=== PATIENT | female | born 1955 | race Caucasian/White ===

== ENCOUNTER 2020-01-28 14:05 | Outpatient (REF) | payer MEDICAID, SELFPAY | END 2020-01-28 14:06 | disposition home or self-care (01) | LOC: HO.LNP 14:05 | PROVIDERS: Visit Provider Internal Medicine | DX: Z20.828 Contact with and (suspected) exposure to other viral communicable diseases (principal) | CPT/HCPCS: U0003 ==

== ENCOUNTER 2020-09-15 11:16 | Outpatient (REF) | payer MEDICARE, MEDICAID, SELFPAY ==
[2020-09-15 13:26] LABS: MANUAL DIFF FLAG NO
[2020-09-15 13:33] LABS: Basophils Absolute Auto 0.1 X10*3/uL (0.0-0.2); Basophils Percent Auto 0.8 % (0-2); Eosinophils Absolute Auto 0.1 X10*3/uL (0.0-0.4); Eosinophils Percent Auto 1.4 % (0-4); Hematocrit 44.5 % (37-47); Hemoglobin 14.5 g/dl (12.0-16.0); Imm Gran Abs Auto 0.01 X10*3/uL (0.00-0.03); Imm Gran Pct Auto 0.1 % (0.0-0.4); Lymphocytes Absolute Auto 1.4 X10*3/uL (1.2-4.9); Lymphocytes Percent Auto 18.7 % (20-40); Mean Corpuscular HGB Conc 32.6 g/dl (31.0-35.0); Mean Corpuscular Volume 92.1 fL (80-98); Monocytes Absolute Auto 0.4 X10*3/uL (0.1-1.2); Monocytes Percent Auto 5.8 % (2-11); Neutrophils Absolute Auto 5.3 X10*3/uL (2.0-8.3); Neutrophils Percent Auto 73.2 % (45-73); Platelet Count 382 X10*3/uL (160-400); Red Blood Count 4.83 X10*6/uL (4.20-5.50); Red Cell Distribution Width 12.6 % (11.0-16.0); White Blood Count 7.2 X10*3/uL (4.8-10.8)
[2020-09-15 13:54] LABS: Alanine Aminotransferase 16 U/L (0-31); Albumin Level 4.4 g/dL (3.5-5.0); Alkaline Phosphatase 71 U/L (39-117); Anion Gap 14 (12-20); Aspartate Amino Transferase 23 U/L (5-31); Bilirubin Total 0.6 mg/dL (0.0-1.0); Blood Urea Nitrogen 11 mg/dL (9-16); Calcium 9.9 mg/dL (8.4-10.2); Carbon Dioxide 29 mmol/L (22-29); Chloride 105 mmol/L (96-108); Cholesterol 178 mg/dL; Estimated Glomerular Filt Rate > 60; Glucose Fasting 108 mg/dL (60-99); HDL Cholesterol 42 mg/dL; LDL Cholesterol Calculated 118 mg/dl; Potassium 4.1 mmol/L (3.3-5.1); Sodium 144 mmol/L (135-145); Total Protein 7.3 g/dL (6.5-8.0); Triglycerides 91 mg/dL
== END 2020-09-15 11:17 | disposition home or self-care (01) ==
LOC: HO.10HDL 11:16
PROVIDERS: Visit Provider Internal Medicine
DX: N18.9 Chronic kidney disease, unspecified (principal); Z86.2 Personal history of diseases of the blood and blood-forming organs and certain disorders involving the immune mechanism
CPT/HCPCS: 36415; 80053; 80061; 85025

== ENCOUNTER 2020-10-07 07:56 | Outpatient (REF) | payer MEDICARE, MEDICAID, SELFPAY ==
--- NOTE | ~2020-10-07 | MR_ITS ---
EXAMINATION: MRI OF THE BRAIN WITH AND WITHOUT IV CONTRAST INDICATION: TRIGEMINAL NEURALGIA COMPARISON: None. TECHNIQUE: Multiplanar multisequence MR imaging of the brain was obtained without and following the administration of 9 mL of Gadavist without complication. FINDINGS: There is a 6 mm enhancing nodule inseparable from the occipital horn of the left lateral ventricle on image 11 of series 11. No additional enhancing lesions intracranially. This is a nonspecific finding that could reflect an intraventricular lesion exhibiting extraventricular extension or an intraventricular lesion exhibiting intraventricular extension. A metastatic focus cannot be excluded. Follow-up with high-resolution MP RAGE postcontrast imaging and a full malignancy workup is recommended for further assessment. Enhancing thickening of the infundibular stalk versus volume averaging artifact that would be better assessed with a dedicated pituitary protocol MRI. There are a few small foci of T2 signal change within the periventricular white matter, the largest associated with the right frontal periventricular white matter. Differential considerations include chronic microangiopathy, the sequela of demyelinating disease, or other white matter processes. Small incidental developmental venous anomaly within the left cerebellum. There is no vascular loop compression of the cisternal segments of the trigeminal nerves. No pathologic enhancement along the intracranial nor the extracranial course of the trigeminal nerves on either side. There is no hydrocephalus, extra-axial surface collection, or herniation. The major flow voids at the skull base are preserved. There is no acute infarct on diffusion-weighted imaging. The cerebellar tonsils are normally positioned. The cerebellum and brainstem are normal. The craniocervical junction is normal. Osseous marrow signal intensity is homogenous. The visualized soft tissues are unremarkable. MR/MR head/brain wo/w con IMPRESSION: - There is a 6 mm enhancing nodule inseparable from the occipital horn of the left lateral ventricle on image 11 of series 11. No additional enhancing lesions intracranially. This is a nonspecific finding that could reflect an intraventricular lesion exhibiting extraventricular extension or an intraventricular lesion exhibiting intraventricular extension. A metastatic focus cannot be excluded. Follow-up with high-resolution MPRAGE postcontrast imaging and a full malignancy workup is recommended for further assessment. - Enhancing thickening of the infundibular stalk versus volume averaging artifact that would be better assessed with a dedicated pituitary protocol MRI. - There are a few small foci of T2 signal change within the periventricular white matter, the largest associated with the right frontal periventricular white matter. Differential considerations include chronic microangiopathy, the sequela of demyelinating disease, or other white matter processes. - No pathologic enhancement of the trigeminal nerves. No evidence of vascular loop compression of the trigeminal nerves.
== END 2020-10-07 07:57 | disposition home or self-care (01) ==
LOC: HO.MRI 07:56
PROVIDERS: PCP Internal Medicine; Visit Provider Internal Medicine
DX: G50.0 Trigeminal neuralgia (principal)
CPT/HCPCS: 70553; A9585

== ENCOUNTER 2020-10-16 10:49 | Outpatient (REF) | payer MEDICARE, MEDICAID, SELFPAY ==
--- NOTE | ~2020-10-16 | MM_ITS ---
EXAMINATION: BONE DENSITOMETRY CLINICAL INDICATION: Menopause. COMPARISON: Baseline BD dated 05/28/2014. TECHNIQUE: Using a Clctin DXA System (software version: 13.1) manufactured by [employer], dual-energy x-ray absorptiometry was performed of the lumbar spine and left hip. The images are of good technical quality. Summary results are attached. FINDINGS: AP SPINE L1-L4: Current: BMD 1.154 g/cm2, Z-score 0.7, T-score -0.2, normal, 1.3% increase from baseline (<5% change is not significant). Baseline: BMD 1.139 g/cm2. LEFT FEMUR, NECK: Current: BMD 0.476 g/cm2, Z-score -3.0, T-score -4.0, osteoporosis. Baseline: BMD 0.912 g/cm2. LEFT FEMUR, TOTAL: Current: BMD 0.475 g/cm2, Z-score -3.5, T-score -4.2, osteoporosis, 46.1% decrease from baseline (<5% change is not significant). Baseline: BMD 0.881 g/cm2. IDENTIFIED RISK FACTORS: Menopause. HISTORY OF FRACTURE: None listed. MEDICATIONS: Calcium supplements or multivitamin, vitamin D. MM/XR DEXA axial skeleton IMPRESSION: 1. DIAGNOSIS: Osteoporosis based on the lowest T-score value of -4.2 in the total femur applying World Health Organization criteria. 2. 10-YEAR FRACTURE RISK PREDICTION, FRAX: Major osteoporotic fracture (clinical spine, forearm, hip or shoulder) 27.5%. Hip fracture 13.7%. 3. Treatment Recommendations: NOF guidelines recommend consideration for treatment in postmenopausal women and men age 50 and older presenting with the following: -A hip or vertebral (clinical or morphometric) fracture. -T-score less than or equal to -2.5 at the femoral neck or spine after appropriate evaluation to exclude secondary causes. -Low bone mass at the hip or spine and a 10-year fracture probability by FRAX of greater than or equal to 3% for hip fracture or greater than or equal to 20% for major osteoporotic fracture based on the [place] adapted WHO algorithm. 4. Other Recommendations: All treatment decisions require clinical judgment and consideration of individual patient factors, including patient preferences, comorbidities, previous drug use, risk factors not captured in the FRAX model (e.g. frailty, falls, vitamin D deficiency, increased bone turnover, interval significant decline in bone density) and possible under or overestimation of fracture risk by FRAX. Additional medical evaluation for secondary cause of low bone mineral density may be appropriate. FUTURE SCAN RECOMMENDATION: People with diagnosed cases of osteoporosis or at high risk for fracture should have regular bone mineral density tests. For patients eligible for Medicare, routine testing is allowed once every 2 years. The testing frequency can be increased to one year for patients who have rapidly progressing disease, those who are receiving or discontinuing medical therapy to restore bone mass, or have additional risk factors.
--- NOTE | ~2020-10-16 | MM_ITS ---
EXAMINATION: MM SCREENING DIGITAL BREAST TOMOSYNTHESIS, BILATERAL CLINICAL INFORMATION: Screening. Asymptomatic. The lifetime risk of breast cancer based on the Tyrer-Cuzick Model is 5.4%. COMPARISON: Mammography: 01/23/2018 and studies dating back to 12/11/2010 TECHNIQUE: Digital breast tomosynthesis is performed in both the craniocaudal and mediolateral oblique views along with computer-aided detection (CAD). Synthesized 2D images are generated from the tomosynthesis. FINDINGS: The breasts are heterogeneously dense, which may obscure small masses (ACR BI-RADS breast composition Category c). There is a stable parenchymal pattern of the left breast. Within the right breast, there are a few either larger or new appearing densities, one measuring approximately 8 mm in maximum dimension lying 10.0 cm from nipple in the upper outer aspect and a second one within the upper outer aspect measuring 9 mm in largest dimension and lying approximately 6.0 cm from the nipple. Ultrasound of the upper outer aspect of the right breast is recommended. MM/MM tomosynthesis screening BI IMPRESSION: New or enlarging circumscribed densities, upper outer aspect of the right breast, which ultrasound is recommended. ASSESSMENT: BI-RADS 0: Incomplete - Need Additional Imaging Evaluation RECOMMENDATION: Ultrasound right breast This patient's information was entered into a reminder system with a target due date for their next mammogram.
== END 2020-10-16 10:50 | disposition home or self-care (01) ==
LOC: HO.MAMMO 10:49
PROVIDERS: Visit Provider Internal Medicine
DX: Z12.31 Encounter for screening mammogram for malignant neoplasm of breast (principal); Z13.820 Encounter for screening for osteoporosis; M81.0 Age-related osteoporosis without current pathological fracture; Z78.0 Asymptomatic menopausal state; Z79.899 Other long term (current) drug therapy
CPT/HCPCS: 77063; 77067; 77080

== ENCOUNTER 2020-10-24 11:22 | Outpatient (REF) | payer MEDICARE, MEDICAID, SELFPAY ==
--- NOTE | ~2020-10-24 | US_ITS ---
EXAMINATION: US DIAGNOSTIC ULTRASOUND BREAST, RIGHT CLINICAL INFORMATION: Recall from screening nodularity mid and posterior outer right breast, increased in size. COMPARISON: Mammography 10/16/2020, 01/23/2018. TECHNIQUE: Ultrasound right breast is targeted to the outer quadrant. Grayscale imaging and color Doppler are performed without and with harmonics. FINDINGS: The nodule more posteriorly 9:30 o'clock position 7 cm from nipple represents a simple cyst measuring 0.8 x 0.7 x 0.6 cm. There is a small adjacent satellite cyst just under 0.4 cm. Both lesions show anechoic lumen, increased through-transmission of sound, and no associated color flow. There is no solid mass or architectural abnormality. The mid outer right breast 9:30 o'clock position 5 cm from nipple has a simple cyst measuring approximately 0.9 x 0.8 x 0.6 cm. This is anechoic with no color flow and there is increased through-transmission of sound. There are 3 incidental intramammary nodes in the mid outer right breast all with normal sabina architecture. The largest node is only 0.7 x 0.4 cm and the other two are each under 0.4 cm. There is no solid mass or architectural abnormality. Results are discussed with the patient at time of visit. US/US breast RT limited IMPRESSION: Incidental cysts mid and posterior outer right breast, largest 0.9 cm. Incidental intramammary nodes mid outer right breast, largest 0.7 cm. ASSESSMENT: BI-RADS 2: Benign RECOMMENDATION: Routine annual mammography screening. This patient's information was entered into a reminder system with a target due date for their next mammogram.
== END 2020-10-24 11:23 | disposition home or self-care (01) ==
LOC: HO.MAMMO 11:22
PROVIDERS: Visit Provider Internal Medicine
DX: R92.2 Inconclusive mammogram (principal)
CPT/HCPCS: 76642

== ENCOUNTER 2021-04-07 14:06 | Outpatient (REF) | payer MEDICARE, MEDICAID, SELFPAY ==
[2021-04-07 14:50] LABS: MANUAL DIFF FLAG NO
[2021-04-07 15:02] LABS: Basophils Absolute Auto 0.1 X10*3/uL (0.0-0.2); Basophils Percent Auto 1.1 % (0-2); Eosinophils Absolute Auto 0.2 X10*3/uL (0.0-0.4); Eosinophils Percent Auto 3.8 % (0-4); Hematocrit 40.9 % (37.0-47.0); Hemoglobin 13.2 g/dl (12.0-16.0); Imm Gran Abs Auto 0.01 X10*3/uL (0.00-0.03); Imm Gran Pct Auto 0.2 % (0.0-0.4); Lymphocytes Absolute Auto 1.3 X10*3/uL (1.2-4.9); Mean Corpuscular HGB Conc 32.3 g/dl (31.0-35.0); Mean Corpuscular Hemoglobin 29.7 pg (27.0-33.0); Mean Corpuscular Volume 92.1 fL (80.0-98.0); Mean Platelet Volume 9.5 fL (9.4-12.3); Monocytes Absolute Auto 0.4 X10*3/uL (0.1-1.2); Monocytes Percent Auto 6.8 % (2-11); Neutrophils Absolute Auto 3.3 x10*3/uL (2.0-8.3); Neutrophils Percent Auto 63.1 % (45-73); Platelet Count 314 X10*3/uL (160-400); Red Blood Count 4.44 X10*6/uL (4.20-5.50); Red Cell Distribution Width 12.2 % (11.0-16.0); White Blood Count 5.3 X10*3/uL (4.8-10.8)
[2021-04-07 15:35] LABS: Alanine Aminotransferase 13 U/L (0-31); Alkaline Phosphatase 76 U/L (39-117); Anion Gap 9 (12-20); Aspartate Amino Transferase 23 U/L (5-31); Bilirubin Total 0.3 mg/dL (0.0-1.0); Blood Urea Nitrogen 13 mg/dL (9-16); C Reactive Protein 0.09 mg/dL (< or = 0.50); Calcium 9.4 mg/dL (8.4-10.2); Carbon Dioxide 32 mmol/L (22-29); Chloride 106 mmol/L (96-108); Estimated Glomerular Filt Rate > 60; Glucose Random 96 mg/dL (60-115); Potassium 4.3 mmol/L (3.3-5.1); Sodium 143 mmol/L (135-145); Total Protein 6.6 g/dL (6.5-8.0)
[2021-04-07 16:08] LABS: Carbamazepine Tegretol 4.4 mcg/mL (5.0-12.0)
== END 2021-04-07 14:07 | disposition home or self-care (01) ==
LOC: HO.LAB 14:06
PROVIDERS: PCP Internal Medicine; Visit Provider Internal Medicine
DX: N18.9 Chronic kidney disease, unspecified (principal); G50.0 Trigeminal neuralgia; Z79.899 Other long term (current) drug therapy
CPT/HCPCS: 36415; 80053; 80156; 85025; 86140

== ENCOUNTER 2021-06-26 11:33 | Outpatient (REF) | payer MEDICARE, MEDICAID, SELFPAY ==
[2021-06-26 12:42] LABS: Influenza A PCR POSITIVE (Negative); Influenza B PCR NEGATIVE (Negative); Resp Syncy Virus RNA Qual PCR NEGATIVE (Negative); SARS COV2 PCR INHOUSE NEGATIVE (Negative)
== END 2021-06-26 11:34 | disposition home or self-care (01) ==
LOC: HO.LNP 11:33
PROVIDERS: PCP Internal Medicine; Visit Provider Internal Medicine
DX: Z20.822 Contact with and (suspected) exposure to COVID-19 (principal); R05.9 Cough, unspecified
CPT/HCPCS: 0241U

== ENCOUNTER 2022-03-24 12:03 | Outpatient (REF) | payer MEDICARE, MEDICAID, SELFPAY ==
[2022-03-24 13:54] LABS: MANUAL DIFF FLAG NO
[2022-03-24 14:28] LABS: Basophils Absolute Auto 0.1 X10*3/uL (0.0-0.2); Basophils Percent Auto 0.9 % (0-2); Eosinophils Absolute Auto 0.2 X10*3/uL (0.0-0.4); Eosinophils Percent Auto 3.2 % (0-4); Hematocrit 42.7 % (37.0-47.0); Hemoglobin 13.7 g/dl (12.0-16.0); Imm Gran Abs Auto 0.05 X10*3/uL (0.00-0.03); Imm Gran Pct Auto 0.8 % (0.0-0.4); Lymphocytes Absolute Auto 1.6 X10*3/uL (1.2-4.9); Lymphocytes Percent Auto 25.6 % (20-40); Mean Corpuscular HGB Conc 32.1 g/dl (31.0-35.0); Mean Corpuscular Hemoglobin 29.1 pg (27.0-33.0); Mean Corpuscular Volume 90.7 fL (80.0-98.0); Mean Platelet Volume 9.8 fL (9.4-12.3); Monocytes Absolute Auto 0.4 X10*3/uL (0.1-1.2); Monocytes Percent Auto 6.3 % (2-11); Neutrophils Percent Auto 63.2 % (45-73); Platelet Count 388 X10*3/uL (160-400); Red Blood Count 4.71 X10*6/uL (4.20-5.50); Red Cell Distribution Width 12.9 % (11.0-16.0); White Blood Count 6.3 X10*3/uL (4.8-10.8)
[2022-03-24 14:29] LABS: Alanine Aminotransferase 17 U/L (0-31); Albumin Level 4.1 g/dL (3.5-5.0); Alkaline Phosphatase 72 U/L (39-117); Anion Gap 12 (12-20); Aspartate Amino Transferase 20 U/L (5-31); Bilirubin Total 0.7 mg/dL (0.0-1.0); Blood Urea Nitrogen 16 mg/dL (9-16); Calcium 9.4 mg/dL (8.4-10.2); Carbon Dioxide 29 mmol/L (22-29); Chloride 105 mmol/L (96-108); Cholesterol 195 mg/dL; Estimated Glomerular Filt Rate > 60; Glucose Fasting 104 mg/dL (60-99); HDL Cholesterol 46 mg/dL; LDL Cholesterol Calculated 126 mg/dl; Sodium 142 mmol/L (135-145); Total Protein 6.4 g/dL (6.5-8.0); Triglycerides 118 mg/dL
[2022-03-24 14:45] LABS: Vitamin D 25-OH Total 41.4 ng/mL (>30)
== END 2022-03-24 12:04 | disposition home or self-care (01) ==
LOC: HO.10HDL 12:03
PROVIDERS: Visit Provider Internal Medicine
DX: Z00.00 Encounter for general adult medical examination without abnormal findings (principal)
CPT/HCPCS: 36415; 80053; 80061; 82306; 85025

== ENCOUNTER 2022-04-07 10:21 | Outpatient (REF) | payer MEDICARE, MEDICAID, SELFPAY ==
--- NOTE | ~2022-04-07 | US_ITS ---
EXAMINATION: US VENOUS ULTRASOUND WITH DOPPLER LOWER EXTREMITY, LEFT CLINICAL INFORMATION: Left calf pain COMPARISON: None TECHNIQUE: Ultrasound of the deep veins is performed from the hip to the calf with compression sonography and color and pulse Doppler assessment. Spectral analysis with color-flow imaging is performed. FINDINGS: There is normal venous compression and respiratory variation and augmented flow. The visualized common femoral vein, superficial femoral vein, profunda femoral vein, popliteal vein, and the trifurcation region shows no evidence of deep venous thrombosis. There is no significant popliteal fossa cyst. Contralateral right common femoral vein appears normal. If the patient's symptoms persist, followup ultrasound in 5 days 7 days might be of value to exclude proximal propagation from a non-visualized calf vein. US/US venous duplex LE LT IMPRESSION: No DVT demonstrated in the left lower extremity.
== END 2022-04-07 10:22 | disposition home or self-care (01) ==
LOC: HO.US 10:21
PROVIDERS: PCP Internal Medicine; Visit Provider Internal Medicine
DX: G57.92 Unspecified mononeuropathy of left lower limb (principal); M79.662 Pain in left lower leg
CPT/HCPCS: 93971

== ENCOUNTER 2022-08-11 11:38 | Emergency (ER) | payer MEDICARE, MEDICAID, SELFPAY ==
--- NOTE | ~2022-08-11 | CT_ITS ---
EXAMINATION: CT HEAD WITHOUT CONTRAST CLINICAL INFORMATION: Balance and gait instability. Lethargy. COMPARISON: None. TECHNIQUE: Contiguous axial imaging was performed from the skull base to vertex without intravenous administration of contrast. Coronal and sagittal reformatted images are performed at the CT scanner. [This CT examination was performed using dose optimization techniques as appropriate, variously including the following: *Automated exposure control *Adjustment of mA and/or kV according to patient size (this includes techniques or standardized protocols for targeted exams where dose is matched to indication/reason for exam; i.e. extremities or head) *Use of iterative reconstruction technique] DLP: 600 mGy-cm. FINDINGS: There is no evidence of acute intracranial hemorrhage or territorial infarction. No abnormal mass-effect or midline shift is seen. Bedoya to white matter differentiation is well preserved. No extra-axial fluid collections are identified. The ventricles are normal in size. There is no abnormal attenuation within the brain parenchyma. There is no osseous abnormality. The mastoid air cells and visualized portions of the paranasal sinuses are well-aerated. CT/CT head/brain wo IV con IMPRESSION: No acute intracranial pathology.
--- NOTE | ~2022-08-11 | XR_ITS ---
EXAMINATION: XR CHEST CLINICAL INFORMATION: Lethargy COMPARISON: 12/26/2017 TECHNIQUE: Frontal view of the chest was obtained. FINDINGS: No significant abnormality is noted involving the heart, lungs, mediastinum, bony thorax or soft tissues. XR/XR chest 1V IMPRESSION: Unremarkable examination.
[2022-08-11 11:41] VITALS: BP 156/83; PULSE 79; RESP 18; TEMP 36.3; O2SAT 95; BMI 30.9
[2022-08-11 14:41] VITALS: BP 129/67; PULSE 83; RESP 18; O2SAT 95
--- NOTE | 2022-08-11 14:41 | ED_ITS ---
HPI - General Adult General Chief complaint: General Medical Stated complaint: Jaw Pain Not Feeling Well Time Seen by Provider: 08/11/22 15:57 Source: patient and family (Son, Paul) Mode of arrival: ambulatory Limitations: no limitations History of Present Illness HPI narrative: 67-year-old female who has a history of trigeminal neuralgia who presents emergency department for evaluation of right jaw pain and ataxia. Patient states that she was diagnosed with right jaw pain caused by trigeminal neuralgia approximately 1 year prior. She was on gabapentin for period of time and this did not resolve her symptoms and then she was treated with carbamazepine 200 mg twice a day which significantly improved her pain. She states she has been off these medications for some time. Approximately 1 week prior she developed pain in her right lower jaw consistent with her trigeminal neuralgia. She states the pain was mild to moderate intensity and brief lasting seconds but coming back frequently. She restarted her carbamazepine 200 mg twice a day on Tuesday, 5 days prior. She states that she is now feeling very tired and off balance. She denied headache, change of vision, difficulty speaking, difficulty swallowing, numbness or weakness of her extremities. Related Data Allergies Allergy/AdvReac Type Severity Reaction Status Date / Time No Known Allergies Allergy Unverified 11/08/19 15:48 [No Known Allergies*] Review of Systems Review of Systems: Yes all other systems are reviewed and are negative REPLACED BY [facility] Past Medical History REPLACED BY [facility] Narrative: Past medical history: Trigeminal neuralgia, hiatal hernia. Past surgical history: None. Social history: She denies tobacco use. She states that she drinks 1 shot of black tarry danni at night. She denies drug use. Social History Social History Smoked in Last 30 Days: No Advance Directives: No Advance Directives Information Provided: No Physical Exam ED Vital Signs: Vital Signs - 24 hr 08/11/22 11:41 08/11/22 14:41 08/11/22 15:22 Temperature 97.3 F Pulse Rate 79 83 70 Respiratory Rate 18 18 18 Blood Pressure 156/83 H 129/67 107/51 L Pulse Oximetry 95 95 96 Oxygen Delivery Method Room Air Room Air Room Air 08/11/22 15:49 Temperature 98.7 F Pulse Rate 87 Respiratory Rate 16 Blood Pressure 138/77 Pulse Oximetry 98 Oxygen Delivery Method Room Air BMI result Body Mass Index 30.9 Const General: cooperative and no acute distress Limitations: no limitations HENMT Head: Yes normal to inspection, Yes normocephalic and Yes atraumatic Ears: external ears normal General nose exam: Normal external nose present Face and sinus: Yes normal facial exam Mouth: Normal oral and palatal mucosa present Throat: Yes posterior oropharynx normal Eyes General: appearance normal, both eyes and all related structures Neck Neck: Yes normal visual inspection, Yes no lymphadenopathy, Yes trachea midline and Yes supple Chest Chest palpation & inspection: normal inspection of the chest and normal palpation of entire chest wall Resp Effort & Inspection: normal respiratory effort and able to speak in complete sen tences Auscultation: clear to auscultation bilaterally Cardio Rate: regular rate Rhythm: regular rhythm Heart sounds: S1 normal heart sound present, S2 normal heart sound present and no murmurs GI Inspection: Yes normal to inspection Palpation (GI): Soft to palpation, nontender and no guarding Auscultation: normal bowel sounds General: Yes no CVA tenderness Back/Spine/Pelvis Back: no CVA tenderness Skin General skin exam: no rashes or lesions noted Neuro Other: Patient is awake, alert, oriented to person, place. Her speech is normal. Cranial nerves 2-12 are intact. She has no tenderness with palpation over the trigeminal nerve on the right. Patient's the cerebellar exam revealed good [id number]-[id number]-to-finger, good heel to garcia, when she stands she is off balance and she is ataxic after 1 or 2 steps. Extrem General: Yes normal to inspection Psych Appearance: grossly normal Speech and movement: Normal speech and movement present Affect: normal affect Attitude: cooperative Thought process: Normal thought process present Thought content: Normal thought content present Course Course Course Narrative: RME: 67-year-old female with a past medical history of trigeminal neuralgia presenting to the ED complaining of increased lethargy, right-sided jaw/facial pain left feeling off balance, and gait instability since Tuesday. Denies focal weakness, headache, vision change/loss, injury Patient ambulating without ataxia, needing assistance, no focal neuro deficits, right lower jaw tenderness elicited EKG, labs, UA, head CT ordered Patient out of the window for tPA Full HPI, ROS and PE to be performed by primary ED provider. Medical Decision Making Medical Decision Making MDM Narrative: 67-year-old female who has a history of trigeminal neuralgia with recurrence of her trigeminal neuralgia symptoms approximately 1 week prior. Patient restarted her car Manjinder being 200 mg twice a day 5 days prior pain. Over the past 1-2 days she has been feeling fatigue and she is now off balance and ataxic. Patient's physical examination revealed good [id number]-blmu-to-finger, good heel to garcia, normal strength in her extremities however she is off balance and ataxic with standing with walking. I ordered the following tests CBC, BMP, liver panel, PT/INR, PTT, magnesium, troponin, ESR, CRP, urinalysis, CT scan of the brain, chest x-ray 1831: Patient's laboratory was unremarkable. CT scan of the brain was unremarkable. Chest x-ray was normal. Twelve EKG was normal Patient Tegretol level was was therapeutic At this time, I suspect the patient's symptoms are secondary to Tegretol and not secondary to his stroke. I did discuss this with the patient and her son. Advised the patient to stop the Tegretol for 4 days. She can continue taking gabapentin for pain. She will need to follow-up with her PCP determine if she can restart Tegretol at a lower dose. I did collection teller for symptoms do not get better when she is up the Tegretol then she may need an MRI as an outpatient to evaluate for possible cerebellar stroke. Differential Diagnosis Differential Diagnoses: The differential diagnosis associated with the presentation includes Differential diagnosis includes was not limited to stroke, carbamazepine toxicity, electrolyte abnormality, anemia, urine infection Admission/Observation Consideration of admission/observation: Escalation of care including admission/observation considered Lab Data MDM Lab Attestation statement: I reviewed the patient's lab results. My interpretation of patient's laboratory evaluation is as follows: CBC was normal, CMP was normal. PT/INR normal. CRP normal. ESR normal. 08/11/22 15:35 08/11/22 15:34 Labs: Lab Results 08/11/22 08/11/22 08/11/22 Range/Units 15:34 15:34 15:34 WBC (4.8-10.8) X10*3/uL RBC (4.20-5.50) X10*6/uL Hgb (12.0-16.0) g/dl Hct (37.0-47.0) % MCV (80.0-98.0) fL MCH (27.0-33.0) pg MCHC (31.0-35.0) g/dl RDW (11.0-16.0) % Plt Count (160-400) X10*3/uL MPV (9.4-12.3) fL Immature Gran % (Auto) (0.0-0.4) % Neut % (Auto) (45-73) % Lymph % (Auto) (20-40) % Ciales % (Auto) (2-11) % Eos % (Auto) (0-4) % Baso % (Auto) (0-2) % Lymph # (Auto) (1.2-4.9) X10*3/uL Ciales # (Auto) (0.1-1.2) X10*3/uL Eos # (Auto) (0.0-0.4) X10*3/uL Baso # (Auto) (0.0-0.2) X10*3/uL Abs Immat Gran (auto) (0.00-0.03) X10*3/uL Absolute Neuts (auto) (2.0-8.3) x10*3/uL Absolute Nucleated RBC (0.0-0.012) X10*3/uL Nucleated RBC % (auto) (0.0-0.2) /100WBC ESR 6 (0-20) MM/HR PT (10.0-13.1) SEC INR (0.9-1.1) Sodium 142 (135-145) mmol/L Potassium 4.8 (3.3-5.1) mmol/L Chloride 104 (96-108) mmol/L Carbon Dioxide 28 (22-29) mmol/L Anion Gap 15 (12-20) BUN 17 H (9-16) mg/dL Creatinine 0.85 (0.5-1.4) mg/dL Estim Creat Clear Calc 73.7 Estimated GFR > 60 Random Glucose 99 (60-115) mg/dL Calcium 10.1 D (8.4-10.2) mg/dL Magnesium 2.4 (1.6-2.6) mg/dL Total Bilirubin 0.4 (0.0-1.0) mg/dL Direct Bilirubin 0.1 (0.0-0.5) mg/dL AST 19 (5-31) U/L ALT 17 (0-31) U/L Alkaline Phosphatase 81 (39-117) U/L Troponin I High Sens 3.1 (<3.5-17.0) ng/L C-Reactive Protein 0.21 (< or = 0.50) mg/dL Total Protein 7.2 (6.5-8.0) g/dL Albumin 4.1 (3.5-5.0) g/dL Urine Color Urine Appearance Urine pH (5.0-9.0) Ur Specific Edon (1.005-1.025) Urine Protein (Neg-Trace) mg/dL Urine Glucose (UA) (Negative) mg/dL Urine Ketones (Negative) mg/dL Urine Blood (Negative) Urine Nitrite (Negative) Ur Leukocyte Esterase (Negative) Carbamazepine (5.0-12.0) mcg/mL 08/11/22 08/11/22 08/11/22 Range/Units 15:35 15:35 16:02 WBC 9.1 (4.8-10.8) X10*3/uL RBC 4.82 (4.20-5.50) X10*6/uL Hgb 14.3 (12.0-16.0) g/dl Hct 45.0 (37.0-47.0) % MCV 93.4 (80.0-98.0) fL MCH 29.7 (27.0-33.0) pg MCHC 31.8 (31.0-35.0) g/dl RDW 12.9 (11.0-16.0) % Plt Count 368 (160-400) X10*3/uL MPV 9.5 (9.4-12.3) fL Immature Gran % (Auto) 0.3 (0.0-0.4) % Neut % (Auto) 76.8 H (45-73) % Lymph % (Auto) 16.0 L (20-40) % Ciales % (Auto) 5.1 (2-11) % Eos % (Auto) 1.2 (0-4) % Baso % (Auto) 0.6 (0-2) % Lymph # (Auto) 1.5 (1.2-4.9) X10*3/uL Ciales # (Auto) 0.5 (0.1-1.2) X10*3/uL Eos # (Auto) 0.1 (0.0-0.4) X10*3/uL Baso # (Auto) 0.1 (0.0-0.2) X10*3/uL Abs Immat Gran (auto) 0.03 (0.00-0.03) X10*3/uL Absolute Neuts (auto) 7.0 (2.0-8.3) x10*3/uL Absolute Nucleated RBC 0.000 (0.0-0.012) X10*3/uL Nucleated RBC % (auto) 0.0 (0.0-0.2) /100WBC ESR (0-20) MM/HR PT 10.7 (10.0-13.1) SEC INR 0.9 (0.9-1.1) Sodium (135-145) mmol/L Potassium (3.3-5.1) mmol/L Chloride (96-108) mmol/L Carbon Dioxide (22-29) mmol/L Anion Gap (12-20) BUN (9-16) mg/dL Creatinine (0.5-1.4) mg/dL Estim Creat Clear Calc Estimated GFR Random Glucose (60-115) mg/dL Calcium (8.4-10.2) mg/dL Magnesium (1.6-2.6) mg/dL Total Bilirubin (0.0-1.0) mg/dL Direct Bilirubin (0.0-0.5) mg/dL AST (5-31) U/L ALT (0-31) U/L Alkaline Phosphatase (39-117) U/L Troponin I High Sens (<3.5-17.0) ng/L C-Reactive Protein (< or = 0.50) mg/dL Total Protein (6.5-8.0) g/dL Albumin (3.5-5.0) g/dL Urine Color Yellow Urine Appearance Clear Urine pH 7.0 (5.0-9.0) Ur Specific Edon 1.015 (1.005-1.025) Urine Protein Negative (Neg-Trace) mg/dL Urine Glucose (UA) Negative (Negative) mg/dL Urine Ketones Negative (Negative) mg/dL Urine Blood Trace H (Negative) Urine Nitrite Negative (Negative) Ur Leukocyte Esterase Small (1+) H (Negative) Carbamazepine (5.0-12.0) mcg/mL 06/21/23 Range/Units 16:42 WBC (4.8-10.8) X10*3/uL RBC (4.20-5.50) X10*6/uL Hgb (12.0-16.0) g/dl Hct (37.0-47.0) % MCV (80.0-98.0) fL MCH (27.0-33.0) pg MCHC (31.0-35.0) g/dl RDW (11.0-16.0) % Plt Count (160-400) X10*3/uL MPV (9.4-12.3) fL Immature Gran % (Auto) (0.0-0.4) % Neut % (Auto) (45-73) % Lymph % (Auto) (20-40) % Ciales % (Auto) (2-11) % Eos % (Auto) (0-4) % Baso % (Auto) (0-2) % Lymph # (Auto) (1.2-4.9) X10*3/uL Ciales # (Auto) (0.1-1.2) X10*3/uL Eos # (Auto) (0.0-0.4) X10*3/uL Baso # (Auto) (0.0-0.2) X10*3/uL Abs Immat Gran (auto) (0.00-0.03) X10*3/uL Absolute Neuts (auto) (2.0-8.3) x10*3/uL Absolute Nucleated RBC (0.0-0.012) X10*3/uL Nucleated RBC % (auto) (0.0-0.2) /100WBC ESR (0-20) MM/HR PT (10.0-13.1) SEC INR (0.9-1.1) Sodium (135-145) mmol/L Potassium (3.3-5.1) mmol/L Chloride (96-108) mmol/L Carbon Dioxide (22-29) mmol/L Anion Gap (12-20) BUN (9-16) mg/dL Creatinine (0.5-1.4) mg/dL Estim Creat Clear Calc Estimated GFR Random Glucose (60-115) mg/dL Calcium (8.4-10.2) mg/dL Magnesium (1.6-2.6) mg/dL Total Bilirubin (0.0-1.0) mg/dL Direct Bilirubin (0.0-0.5) mg/dL AST (5-31) U/L ALT (0-31) U/L Alkaline Phosphatase (39-117) U/L Troponin I High Sens (<3.5-17.0) ng/L C-Reactive Protein (< or = 0.50) mg/dL Total Protein (6.5-8.0) g/dL Albumin (3.5-5.0) g/dL Urine Color Urine Appearance Urine pH (5.0-9.0) Ur Specific Edon (1.005-1.025) Urine Protein (Neg-Trace) mg/dL Urine Glucose (UA) (Negative) mg/dL Urine Ketones (Negative) mg/dL Urine Blood (Negative) Urine Nitrite (Negative) Ur Leukocyte Esterase (Negative) Carbamazepine 8.1 (5.0-12.0) mcg/mL Independent Interpretation I performed an independent interpretation of an: EKG Interpretation: My independent interpretation patient's 12 EKG done at 15:10 hours is as follows: Sinus rhythm with a rate of 62, occasional PAC, no ST segment elevation, no ST segment depression, no significant T-wave abnormalities, Radiology Impression Discussion of test interpretation with radiology: I have reviewed the radiologist's reading. Radiologist Impression: brain wo IV con IMPRESSION: No acute intracranial pathology. Dictated By:Ashok Ascencio MD XR chest 1V IMPRESSION: Unremarkable examination. Dictated By:Isaac Cortez MD Discharge Plan Discharge Clinical Impression: Ataxia, Fatigue, Trigeminal neuralgia of right side of face Patient Disposition: Home, Self-Care Additional Instructions: The CT scan of your brain was normal. Your chest x-ray was normal. Your EKG was normal. Your laboratory evaluation was unremarkable. Your carbamazepine level was 8.1 in the therapeutic range (5.0 to 12.0). At this time, I suspect that your symptoms are due to the carbamezepine and I want you to stop this for 4 days. If your symptoms are not better then you will need an MRI as an outpatient to determine if you have a stroke in the cerebellar region of your brain. You can continue to take your gabapentin for your trigeminal neuralgia pain. Follow-up with your doctor in 2 days. Please return to the emergency department if your symptoms get worse or if you develop any symptoms that are concerning to you.
--- NOTE | 2022-08-11 14:44 | ECG_ITS ---
Test Reason : WEAKNESS Blood Pressure : / mmHG Vent. Rate : 062 BPM Atrial Rate : 062 BPM P-R Int : 166 ms QRS Dur : 084 ms QT Int : 394 ms P-R-T Axes : 056 -09 023 degrees QTc Int : 399 ms Sinus rhythm with Premature atrial complexes Minimal voltage criteria for LVH, may be normal variant ( R in aVL ) Borderline ECG When compared with ECG of 03-JUL-2018 14:22, Premature atrial complexes are now Present QT has shortened Referred By: Kinsey Garcia Electronically Signed By:MART TORRES
[2022-08-11 15:22] VITALS: BP 107/51; PULSE 70; RESP 18; O2SAT 96
[2022-08-11 15:43] LABS: MANUAL DIFF FLAG NO
[2022-08-11 15:49] VITALS: BP 138/77; PULSE 87; RESP 16; TEMP 37.1; O2SAT 98
[2022-08-11 15:53] LABS: Basophils Absolute Auto 0.1 X10*3/uL (0.0-0.2); Basophils Percent Auto 0.6 % (0-2); Eosinophils Absolute Auto 0.1 X10*3/uL (0.0-0.4); Eosinophils Percent Auto 1.2 % (0-4); Hemoglobin 14.3 g/dl (12.0-16.0); Imm Gran Abs Auto 0.03 X10*3/uL (0.00-0.03); Imm Gran Pct Auto 0.3 % (0.0-0.4); Lymphocytes Absolute Auto 1.5 X10*3/uL (1.2-4.9); Mean Corpuscular HGB Conc 31.8 g/dl (31.0-35.0); Mean Corpuscular Hemoglobin 29.7 pg (27.0-33.0); Mean Corpuscular Volume 93.4 fL (80.0-98.0); Mean Platelet Volume 9.5 fL (9.4-12.3); Monocytes Absolute Auto 0.5 X10*3/uL (0.1-1.2); Monocytes Percent Auto 5.1 % (2-11); Neutrophils Percent Auto 76.8 % (45-73); Platelet Count 368 X10*3/uL (160-400); Red Blood Count 4.82 X10*6/uL (4.20-5.50); Red Cell Distribution Width 12.9 % (11.0-16.0); White Blood Count 9.1 X10*3/uL (4.8-10.8)
[2022-08-11 16:06] LABS: Alanine Aminotransferase 17 U/L (0-31); Albumin Level 4.1 g/dL (3.5-5.0); Alkaline Phosphatase 81 U/L (39-117); Anion Gap 15 (12-20); Aspartate Amino Transferase 19 U/L (5-31); Bilirubin Direct 0.1 mg/dL (0.0-0.5); Bilirubin Total 0.4 mg/dL (0.0-1.0); Blood Urea Nitrogen 17 mg/dL (9-16); C Reactive Protein 0.21 mg/dL (< or = 0.50); Calcium 10.1 mg/dL (8.4-10.2); Carbon Dioxide 28 mmol/L (22-29); Chloride 104 mmol/L (96-108); Creatinine Clr Calc Pharmacy 73.7; Estimated Glomerular Filt Rate > 60; Glucose Random 99 mg/dL (60-115); Magnesium 2.4 mg/dL (1.6-2.6); Potassium 4.8 mmol/L (3.3-5.1); Sodium 142 mmol/L (135-145); Total Protein 7.2 g/dL (6.5-8.0)
[2022-08-11 16:12] LABS: Appearance Urine Clear; Color Urine Yellow; Glucose Urine UA Negative (Negative); Leukocyte Esterase Urine Small (1+) (Negative); Nitrite Urine Negative (Negative); Specific Gravity - Urine 1.015 (1.005-1.025); UMIC TRIGGER UACC YES; Urine Blood Trace (Negative); Urine Ketones Negative (Negative); Urine Protein Negative (Neg-Trace)
[2022-08-11 16:13] LABS: Troponin-I High Sensitivity 3.1 ng/L (<3.5-17.0)
[2022-08-11 16:14] LABS: INTERNATIONAL NORM RATIO 0.9 (0.9-1.1); Prothrombin Time 10.7 SEC (10.0-13.1)
[2022-08-11 16:44] LABS: Erythrocyte Sedimentation Rate 6 MM/HR (0-20)
[2022-08-11 17:04] LABS: Carbamazepine Tegretol 8.1 mcg/mL (5.0-12.0)
[2022-08-11 18:00] VITALS: BP 135/75; PULSE 72; RESP 16; TEMP 36.8; O2SAT 98
[2022-08-11 18:35] LABS: Bacteria Urine None Seen (None Seen); Hyaline Casts Urine 0-2 /LPF (0-2); Squamous Epithelial Cell Urine 0-2 /HPF (0-2); UACC Culture Trigger YES; WBC Urine 0-5 /HPF (0-5)
== END 2022-08-11 18:56 | disposition home or self-care (01) ==
PROVIDERS: Physician Assistant; Emergency Provider Emergency Medicine Emergency Medical Services; PCP Internal Medicine
DX: R26.0 Ataxic gait (principal); R53.83 Other fatigue; G50.0 Trigeminal neuralgia; R68.84 Jaw pain; Z79.899 Other long term (current) drug therapy
CPT/HCPCS: 36415; 70450; 71045; 80048; 80076; 80156; 81001; 83735; 84484; 85025; 85610; 85652; 86140; 87086; 93005; 99283; 99284; 99285

== ENCOUNTER 2023-04-26 09:09 | Outpatient (REF) | payer MEDICARE, SELFPAY ==
--- NOTE | ~2023-04-26 | MM_ITS ---
EXAMINATION: BONE DENSITOMETRY CLINICAL INDICATION: Menopausal. COMPARISON: Previous BD dated 10/16/2020 and baseline BD dated 05/28/2014. TECHNIQUE: Using a [employer] DXA System (software version: 13.1) manufactured by [employer], dual-energy x-ray absorptiometry was performed of the lumbar spine and left hip. The images are of good technical quality. Summary results are attached. FINDINGS: LEFT FEMUR, NECK: Current: BMD 0.340 g/cm2, Z-score -4.0, T-score -5.0, osteoporosis. Prior: BMD 0.476 g/cm2. Baseline: BMD 0.912 g/cm2. LEFT FEMUR, TOTAL: Current: BMD 0.422 g/cm2, Z-score -3.9, T-score -4.6, osteoporosis, 11.2% decrease from previous, 52.1% decrease from baseline (<5% change is not significant). Prior: BMD 0.475 g/cm2. Baseline: BMD 0.881 g/cm2. AP SPINE L1-L2 (excluding L3 and L4): The data of L1-L4 has been changed to exclude the L3 and L4 vertebral bodies, because degenerative sclerosis at these levels may cause overestimation of lumbar spine density. Current: BMD 1.029 g/cm2, Z-score -0.4, T-score -1.1, osteopenia, 0.6% decrease from previous, 6.5% decrease from baseline (<5% change is not significant). Prior: BMD 1.035 g/cm2. Baseline: BMD 1.100 g/cm2. IDENTIFIED RISK FACTORS: Menopause, low calcium intake, osteoporosis. HISTORY OF FRACTURE: None listed. MEDICATIONS: Calcium or multivitamin. Vitamin D. MM/XR DEXA axial skeleton IMPRESSION: 1. DIAGNOSIS: Osteoporosis based on the lowest T-score value of -5.0 in the femoral neck applying World Health Organization criteria. 2. 10-YEAR FRACTURE RISK PREDICTION, FRAX: According to the guidelines, FRAX calculation should only be performed on patients in the osteopenia bone density category. Therefore, FRAX was not performed on this patient. 3. Treatment Recommendations: NOF guidelines recommend consideration for treatment in postmenopausal women and men age 50 and older presenting with the following: -A hip or vertebral (clinical or morphometric) fracture. -T-score less than or equal to -2.5 at the femoral neck or spine after appropriate evaluation to exclude secondary causes. -Low bone mass at the hip or spine and a 10-year fracture probability by FRAX of greater than or equal to 3% for hip fracture or greater than or equal to 20% for major osteoporotic fracture based on the [place] adapted WHO algorithm. 4. Other Recommendations: All treatment decisions require clinical judgment and consideration of individual patient factors, including patient preferences, comorbidities, previous drug use, risk factors not captured in the FRAX model (e.g. frailty, falls, vitamin D deficiency, increased bone turnover, interval significant decline in bone density) and possible under or overestimation of fracture risk by FRAX. Additional medical evaluation for secondary cause of low bone mineral density may be appropriate. FUTURE SCAN RECOMMENDATION: People with diagnosed cases of osteoporosis or at high risk for fracture should have regular bone mineral density tests. For patients eligible for Medicare, routine testing is allowed once every 2 years. The testing frequency can be increased to one year for patients who have rapidly progressing disease, those who are receiving or discontinuing medical therapy to restore bone mass, or have additional risk factors.
--- NOTE | ~2023-04-26 | MM_ITS ---
EXAMINATION: MM SCREENING DIGITAL BREAST TOMOSYNTHESIS, BILATERAL CLINICAL INFORMATION: Screening. Asymptomatic. COMPARISON: Mammography: 10/16/2020, 01/23/2018, 05/28/2014, and dating back to 04/06/2011. A right breast ultrasound was performed 10/24/2020. This demonstrated several simple cysts at the 9-10 o'clock axis, as well as a benign intramammary lymph node. TECHNIQUE: Digital breast tomosynthesis is performed in both the craniocaudal and mediolateral oblique views along with computer-aided detection (CAD). Synthesized 2D images are generated from the tomosynthesis. FINDINGS: The breasts are heterogeneously dense, which may obscure small masses (ACR BI-RADS breast composition Category c). Several bilateral skin lesions which were previously marked in 2020. 2 stable circumscribed oval isodense masses are evident in the right breast approximate 10:00 axis, and the region of known cysts. Intramammary lymph node noted in the far lateral right breast, approximate 9:00 axis. There are several circumscribed small masses in both breasts consistent with waxing and waning cysts. There are no suspicious calcifications. No developing masses or regions of architectural distortion. No concerning skin or axillary abnormalities. MM/MM tomosynthesis screening BI IMPRESSION: No mammographic evidence of malignancy. Stable fibrocystic changes upper outer right breast. Stable benign findings. ASSESSMENT: BI-RADS BI-RADS 2 - Benign Findings RECOMMENDATION: Routine annual mammography screening. 1 year F/U This examination should not preclude the clinical evaluation of a suspicious palpable abnormality. This patient's information was entered into a reminder system with a target due date for their next mammogram.
== END 2023-04-26 09:10 | disposition home or self-care (01) ==
LOC: HO.MAMMO 09:09
PROVIDERS: PCP Internal Medicine; Visit Provider Internal Medicine
DX: Z12.31 Encounter for screening mammogram for malignant neoplasm of breast (principal); Z13.820 Encounter for screening for osteoporosis; Z78.0 Asymptomatic menopausal state
CPT/HCPCS: 77063; 77067; 77080

== ENCOUNTER 2023-04-26 09:42 | Outpatient (REF) | payer MEDICARE, SELFPAY ==
[2023-04-26 11:19] LABS: MANUAL DIFF FLAG NO
[2023-04-26 11:23] LABS: Basophils Absolute Auto 0.1 X10*3/uL (0.0-0.2); Eosinophils Absolute Auto 0.3 X10*3/uL (0.0-0.4); Eosinophils Percent Auto 3.9 % (0-4); Hematocrit 42.5 % (37.0-47.0); Hemoglobin 13.9 g/dl (12.0-16.0); Imm Gran Abs Auto 0.01 X10*3/uL (0.00-0.03); Imm Gran Pct Auto 0.1 % (0.0-0.4); Lymphocytes Absolute Auto 1.8 X10*3/uL (1.2-4.9); Lymphocytes Percent Auto 26.2 % (20-40); Mean Corpuscular HGB Conc 32.7 g/dl (31.0-35.0); Mean Corpuscular Hemoglobin 29.7 pg (27.0-33.0); Mean Corpuscular Volume 90.8 fL (80.0-98.0); Monocytes Absolute Auto 0.4 X10*3/uL (0.1-1.2); Monocytes Percent Auto 6.1 % (2-11); Neutrophils Absolute Auto 4.3 x10*3/uL (2.0-8.3); Neutrophils Percent Auto 62.7 % (45-73); Platelet Count 356 X10*3/uL (160-400); Red Blood Count 4.68 X10*6/uL (4.20-5.50); White Blood Count 6.9 X10*3/uL (4.8-10.8)
[2023-04-26 12:27] LABS: Alanine Aminotransferase 13 U/L (0-31); Albumin Level 4.1 g/dL (3.5-5.0); Alkaline Phosphatase 71 U/L (39-117); Anion Gap 9 (12-20); Aspartate Amino Transferase 17 U/L (5-31); Bilirubin Total 0.5 mg/dL (0.0-1.0); Blood Urea Nitrogen 13 mg/dL (9-16); C Reactive Protein 0.13 mg/dL (< or = 0.50); Calcium 9.2 mg/dL (8.4-10.2); Carbon Dioxide 30 mmol/L (22-29); Chloride 107 mmol/L (96-108); Cholesterol 178 mg/dL (<200); Estimated Glomerular Filt Rate > 60; Glucose Random 108 mg/dL (60-115); Potassium 3.8 mmol/L (3.3-5.1); Sodium 142 mmol/L (135-145); Total Protein 6.8 g/dL (6.5-8.0)
== END 2023-04-26 09:43 | disposition home or self-care (01) ==
LOC: HO.10HDL 09:42
PROVIDERS: Visit Provider Internal Medicine
DX: M81.0 Age-related osteoporosis without current pathological fracture (principal); G43.909 Migraine, unspecified, not intractable, without status migrainosus; M25.561 Pain in right knee; G50.0 Trigeminal neuralgia
CPT/HCPCS: 36415; 80053; 82306; 82465; 85025; 86140

== ENCOUNTER → 2023-04-26 09:45 | Outpatient (BNV) | payer MEDICARE, SELFPAY | PROVIDERS: PCP Internal Medicine; Visit Provider Radiology Diagnostic Radiology | DX: Z12.31 Encounter for screening mammogram for malignant neoplasm of breast (principal) | CPT/HCPCS: 77063; 77067 ==

== ENCOUNTER 2024-03-19 12:08 | Outpatient (REF) | payer MEDICARE, SELFPAY ==
[2024-03-19 13:01] LABS: MANUAL DIFF FLAG NO
[2024-03-19 13:05] LABS: Basophils Absolute Auto 0.1 X10*3/uL (0.0-0.2); Basophils Percent Auto 1.5 % (0-2); Eosinophils Absolute Auto 0.3 X10*3/uL (0.0-0.4); Eosinophils Percent Auto 4.1 % (0-4); Hematocrit 42.4 % (37.0-47.0); Hemoglobin 13.6 g/dl (12.0-16.0); Imm Gran Abs Auto 0.01 X10*3/uL (0.00-0.03); Imm Gran Pct Auto 0.2 % (0.0-0.4); Lymphocytes Absolute Auto 1.8 X10*3/uL (1.2-4.9); Lymphocytes Percent Auto 27.6 % (20-40); Mean Corpuscular HGB Conc 32.1 g/dl (31.0-35.0); Mean Corpuscular Hemoglobin 29.8 pg (27.0-33.0); Mean Platelet Volume 9.6 fL (9.4-12.3); Monocytes Absolute Auto 0.4 X10*3/uL (0.1-1.2); Monocytes Percent Auto 6.1 % (2-11); Neutrophils Absolute Auto 3.9 x10*3/uL (2.0-8.3); Neutrophils Percent Auto 60.5 % (45-73); Platelet Count 408 X10*3/uL (160-400); Red Blood Count 4.56 X10*6/uL (4.20-5.50); Red Cell Distribution Width 13.2 % (11.0-16.0); White Blood Count 6.5 X10*3/uL (4.8-10.8)
[2024-03-19 13:47] LABS: Alanine Aminotransferase 22 U/L (0-31); Alkaline Phosphatase 65 U/L (39-117); Anion Gap 7 (12-20); Aspartate Amino Transferase 24 U/L (5-31); Bilirubin Total 0.3 mg/dL (0.0-1.0); Blood Urea Nitrogen 13 mg/dL (9-16); C Reactive Protein < 0.10 mg/dL (< or = 0.50); Calcium 9.5 mg/dL (8.4-10.2); Carbon Dioxide 32 mmol/L (22-29); Chloride 107 mmol/L (96-108); Cholesterol 169 mg/dL (<200); Estimated Glomerular Filt Rate > 60; Glucose Random 111 mg/dL (60-115); Sodium 142 mmol/L (135-145); Total Protein 6.9 g/dL (6.5-8.0)
[2024-03-19 14:02] LABS: Vitamin B12 521 pg/mL (200-900)
== END 2024-03-19 12:09 | disposition home or self-care (01) ==
LOC: HO.10HDL 12:08
PROVIDERS: Visit Provider Internal Medicine
DX: M81.0 Age-related osteoporosis without current pathological fracture (principal); N18.9 Chronic kidney disease, unspecified
CPT/HCPCS: 36415; 80053; 82465; 82550; 82607; 85025; 86140

== ENCOUNTER 2024-12-15 10:38 | Outpatient (REF) | payer MEDICARE, SELFPAY ==
--- OUTSIDE RECORDS SUMMARY | 2024-12-15 10:41 | XMS_ITS ---
Author Name [facility] Organization Unknown History of Medication Use Medication Directions Dispensed Refills Start Date End Date Stat us methocarbamol 10/25/2023 active Encounters Encounter Type Encounter Reason Primary Diagnosis Location Date Ambulatory TBE Sprain of ligame nts of cervical spine, [facility] encounter [facility] 12/02/2024 Care Team Organization Name Specialty Phone Email Start Date End Da te [facility] 12/06/2024 [facility] 12/02/2024
[2024-12-15 15:20] LABS: Appearance Urine Cloudy; Glucose Urine UA Negative (Negative); PH 6.0 (5.0-9.0); Specific Gravity - Urine 1.015 (1.005-1.025); UMIC TRIGGER UACC YES
[2024-12-15 15:25] LABS: UACC Culture Trigger YES
== END 2024-12-15 10:39 | disposition home or self-care (01) ==
LOC: HO.LAB 10:38
PROVIDERS: Visit Provider Internal Medicine
DX: R30.0 Dysuria (principal)
CPT/HCPCS: 81001; 87086; 87088; 87186

== ENCOUNTER 2024-12-19 10:19 | Outpatient (AMB) | payer MEDICARE, SELFPAY ==
--- NOTE | 2024-12-19 09:43 | MHC.PC.OV ---
Vital Signs 12/19/24 10:23 Height 5 ft 5 in Weight 190 lb 6 oz BMI 31.7 BP 120/70 Blood Pressure Location Lt brachial Position Sitting Respiration 16 Pulse 95 Pulse Source Pulse Oximeter Temp 97.6 F Temp Source Oral Pulse Oximetry (%) 95 Oxygen Delivery Method Room Air Intake Visit Reasons: GIDEON/Dr Ramirez - see comments News Reel Cameraman Required: No Accompanied by: Self / Same As Patient Allergies No Known Allergies (No Known Allergies*) Allergy (Verified 12/19/24 09:44) Medication List - Last Reconciled 12/19/24 by Orlando Nunez MD carbamazepine ER (Carbatrol) 200 mg PO BID PRN cholecalciferol (vitamin D3) (Vitamin D3) 25 mcg PO DAILY nitrofurantoin monohyd/m-cryst 100 mg (Macrobid) 100 mg PO Q12H 5 days Tobacco use date assessed: 12/19/24 Fall risk assessment: 1 Fall in past year Last assessed Fall Risk: 12/19/24 Dental Screening Dental Screen Date: 12/19/24 Did you have a dental visit in the last 12 months?: No Did you have a dental problem in the last 6 months where you did not have access to dental care?: No HPI HPI Comments History of Present Illness Details The patient is a 69-year-old female presenting for an annual exam and to address urinary incontinence. The patient reports worsening urinary incontinence at night, particularly over the last weekend. She was recently diagnosed with an E. coli urinary tract infection and is currently taking antibiotics, which provided some improvement with one night of nearly full sleep. She describes experiencing nocturia, normally every two hours, but recently as often as every hour. She experiences urge and overflow incontinence, often filling a pad before reaching the toilet, even after her recent UTI treatment started. She denies burning with urination or a known history of uterine prolapse. The patient has a history of trigeminal neuralgia, for which she takes carbamazepine as needed. This began after an endoscopy, where she experienced sharp facial pain, followed by facial swelling. She later experienced electrical shocks and severe pain after taking diet pills containing calcium, which led to the diagnosis after a consultation and tongue biopsy. She reports that gabapentin was not effective. She cannot take calcium due to its association with her trigeminal nerve pain. The patient has severe osteoporosis, with a previous bone scan showing a T-score of -5.0 in the left femoral neck, -4.6 in the total left femur, and -1.1 in the spine (osteopenia). She notes a past fall where she landed on her buttocks, which was jarring and caused a headache. Regarding preventive care, she had a prior colonoscopy with an endoscopy but does not recall the date; she has refused her recent mammogram. Her father had unspecified diseases and was on dialysis. She denies any history of smoking or illicit drug use and drinks alcohol occasionally. Medical History: - Trigeminal neuralgia - Severe osteoporosis - Osteopenia - Urinary tract infection (E. coli), currently under treatment - Past procedure: Endoscopy and colonoscopy Surgical History: - Denies any prior surgeries. Medications: - Carbamazepine 200 mg twice daily as needed for trigeminal neuralgia - Vitamin D supplementation - Nitrofurantoin for urinary tract infection Family History: - Father had unspecified diseases requiring dialysis. Diagnostic Results: - Urinalysis: Positive for E. coli, indicative of a urinary tract infection. - Bone Scan: T-score of -5.0 in the left femoral neck, -4.6 in the total left femur, and -1.1 in the spine, indicating severe osteoporosis and osteopenia. Social History: - Smoking: Denies history of smoking. - Alcohol: Reports occasional use. - Illicit Drugs: Denies use of marijuana, heroin, or cocaine. - Employment: Works for an [employer]. - Housing: Lives in her own house. - Diet: Reports limited fluid intake, with one glass of water in the morning, one cup of coffee, and about half a cup of water during work shifts. - She eats breakfast at 11 AM (eggs, cranberries, nuts, banana) and a salad for dinner at 3 PM. [facility] Medical History (Updated 12/19/24 @ 10:54 by Orlando Nunez MD) Annual physical exam Urinary tract infection Trigeminal neuralgia Severe osteopetrosis Urinary incontinence Osteoporosis Social History Housing: House Patient Tobacco Use Status: Never used Tobacco e-Cigarette/Vaping Use: Never Used service: No Current occupational status: retired Cognitive needs: No Hearing needs: No Vision needs: No Questionnaire PHQ-9 Over the last 2 weeks, how often have you been bothered by any of the following problems? 1. Little interest or pleasure in doing things: not at all 2. Feeling down, depressed, or hopeless: not at all 3. Trouble falling or staying asleep, or sleeping too much: not at all 4. Feeling tired or having little energy: not at all 5. Poor appetite or overeating: not at all 6. Feeling bad about yourself - or that you are a failure or have let yourself or your family down: not at all 7. Trouble concentrating on things, such as reading the newspaper or watching television: not at all 8. Moving or speaking so slowly that other people could have noticed. Or the opposite - being so fidgety or restless that you have been moving around a lot more than usual: not at all 9. Thoughts that you would be better off or of hurting yourself in some way: not at all Total score: 0 Depression Screening Interpretation: Negative Depression Screening Done: Yes 79523 - PHQ-9 Billing: Yes Source: Developed by Drs. Edi Ulrich, Martha De Paz, Tarun Cox and colleagues, with an educational tiff from [employer]. Thrive Questionnaire Date Thrive assessed: 12/19/24 I am a: Patient What is your living situation today?: I have a steady place to live Within the past 12 months, did the food you bought not last and you didn't have the money to get more?: Never true Within the past 12 months, did you worry whether your food would run out before you got money to buy more?: Never true Do you have trouble paying for medicines?: No Do you have trouble getting transportation to medical appointments?: No Do you have trouble paying your heating and electricity bill?: No Do you have trouble taking care of your child, family member or friend?: No Do you have trouble with day-to-day activities such as bathing, preparing meals, shopping, managing finances, etc.?: No Are you currently unemployed and looking for a job?: No Are you interested in more education?: No THRIVE Score: 0 AUDIT C Alcohol Use Questionnaire (AUDIT-C) 1. How often do you have a drink containing alcohol?: Never 3. How often do you have six or more drinks on one occasion?: Never Total Score: 0 Score Reviewed/Action Taken: Yes JOSEPH-7 AMB Questionnaire JOSEPH-7 Date JOSEPH - 7 assessed: 12/19/24 Feeling nervous, anxious, or on edge: 0 = Not at all Not being able to stop or control worryin = Not at all Worrying too much about different things: 0 = Not at all Trouble relaxin = Not at all Being so restless that it is hard to sit still: 0 = Not at all Becoming easily annoyed or irritable: 0 = Not at all Feeling afraid as if something awful might happen: 0 = Not at all Total JOSEPH-7 score (0-4 normal; 5-9 mild; 10-14 moderate; 15-21 severe): 0 Source: Developed by Drs. Edi Ulrich, Martha De Paz, Tarun Cox and colleagues, with an educational tiff from [employer]. JOSEPH-7 Assessment Billing JOSEPH-7 Assessment Tool: JOSEPH-7 Assessment 53816 Review of Systems Narrative - Genitourinary: Reports urinary urgency, nocturia, and incontinence. - She denies urinary burning or leakage with cough. - Neurological: Reports a history of trigeminal neuralgia with facial pain and electrical shocks in the mouth. - Musculoskeletal: Reports a past fall on her buttocks with jarring pain and headache. - Gastrointestinal: Reports regular bowel movements. - She denies constipation or straining. All systems reviewed & are unremarkable except as reviewed in HPI and above Physical exam (Primary Care) Vital Signs: Last Vital Signs Temp 97.6 F 12/19/24 10:23 Pulse 95 12/19/24 10:23 Resp 16 12/19/24 10:23 BP 120/70 12/19/24 10:23 Pulse Ox 95 12/19/24 10:23 Oxygen Delivery Method Room Air 12/19/24 10:23 BMI result Body Mass Index 31.7 Tobacco/Smoking Status: Tobacco use Status Tobacco use date assessed 12/19/24 12/19/24 09:45 Patient Tobacco Use Status Never used Tobacco 12/19/24 09:45 e-Cigarette/Vaping Use Never Used 12/19/24 09:45 PHQ-9: PHQ-9 Score PHQ-9: Total score 0 12/19/24 10:31 Depression Screening Interpretation: Negative Thrive Assessment: Date of Thrive Assessment Date Thrive assessed 12/19/24 12/19/24 09:45 Narrative General: +Alert and oriented, Well nourished, No acute distress. Eye: Pupils are equal, round and reactive to light, Intact accommodation, Extraocular movements are intact, Normal conjunctiva, Vision unchanged. HENT: Normocephalic, Atraumatic, Tympanic membranes are clear, Normal hearing, Oral mucosa is moist, No pharyngeal erythema, Ear canals patent. Respiratory: Lungs CTA bilaterally, No wheeze, Respirations are non-labored. Cardiovascular: Regular rate, Regular rhythm, S1 auscultated, S2 auscultated, No murmur, Good pulses equal in all extremities, Normal peripheral perfusion, No edema. Gastrointestinal: Soft, Non-tender, Non-distended, Normal bowel sounds, No organomegaly. Musculoskeletal: Normal range of motion, Normal strength, No tenderness, No swelling, No deformity, Normal gait. Integumentary: Warm, Dry, [place], Intact. Neurologic: Alert, Oriented, Normal sensory, Normal motor function, No focal defects, Cranial Nerves II-XII are grossly intact, Normal deep tendon reflexes. Psychiatric: Cooperative, Appropriate mood & affect, Normal judgment. 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 coli UTI however has had it for an extended period of time - Further evaluation is needed to rule out underlying causes like occult constipation or pelvic floor dysfunction. - The plan includes behavioral modifications, such as limiting evening fluid intake and implementing timed voiding. - A trial of Miralax is recommended to rule out constipation as a contributing factor. - The patient will maintain a voiding diary. - A follow-up is scheduled in two weeks to assess progress and consider medication if symptoms persist. - Further workup with urodynamic studies may be considered if there is no improvement. Code(s): R32 - Unspecified urinary incontinence Category: Medical Qualifiers: Urinary Incontinence type: other incontinence (2) Severe osteopetrosis: Comment: - The patient has exceptionally severe osteoporosis, with a T-score of -5.0 in the femoral neck, placing her at a very high risk for fractures. - She has a history of a fall. - The plan is to obtain comprehensive blood work, including electrolytes, cholesterol, glucose, thyroid function, calcium, phosphate, and vitamin D levels. - A referral will be made to an switch adjuster specializing in bone health for further management. - Treatment with alendronate was discussed as a future possibility, pending lab results and specialist consultation. Also advised dentist evaluation Code(s): Q78.2 - Osteopetrosis Category: Medical (3) Trigeminal neuralgia: Comment: - This appears to be a chronic, stable condition. - The patient is managing symptoms with as-needed carbamazepine. - The plan is to continue the current PRN medication regimen of carbazmezapine - Failed gabapentin in the past Code(s): G50.0 - Trigeminal neuralgia Category: Medical (4) Urinary tract infection: Comment: - The patient is currently being treated for an E. coli UTI with nitrofurantoin. (Called in over the weekend with concerns of dysuria and UA Culture positive) - The plan is for her to complete the full course of antibiotics, which should also help alleviate some of the incontinence symptoms. Code(s): N39.0 - Urinary tract infection, site not specified Category: Medical Qualifiers: Hematuria presence: without hematuria Urinary tract infection type: acute cystitis Qualified Code(s): N30.00 - Acute cystitis without hematuria (5) Annual physical exam: Comment: - The patient declined her annual mammogram. - For colon cancer screening, the patient agreed to a stool-based test, which will be ordered. (Declined Colonoscopy) Code(s): Z00.00 - Encounter for general adult medical examination without abnormal findings Category: Medical Plan: Health Maintenance: - Colon Cancer Screening: Patient had a prior colonoscopy (date unknown) and has agreed to a stool-based screening test. - Breast Cancer Screening: Patient was due for a mammogram in April of this year but is declining further mammograms. - Bone Health: A previous bone scan revealed severe osteoporosis with a T-score of -5.0 on the left femoral neck. I have ordered labs (calcium, vitamin D, phosphate) and will refer her to endocrinology for management. Patient was informed and verbally consented to the use of an ambient scribe for clinic note documentation during this visit. Plan I had an extensive discussion with the patient regarding her urinary incontinence, which I believe is a combination of urge and overflow incontinence, worsened by her recent UTI. I recommended she start with behavioral changes, including limiting fluids in the evening and practicing timed voiding, and to try Miralax to rule out constipation as a factor. We will follow up in two weeks to assess her progress. I emphasized the severity of her osteoporosis, explaining that her T-score of -5.0 is exceptionally low and puts her at high risk for fractures with even a minor fall. I explained that while she is averse to calcium due to her trigeminal neuralgia, there are other treatments like alendronate. I have ordered blood work and will refer her to an switch adjuster who specializes in bone health for further management. We also discussed health maintenance. The patient declined further mammograms but agreed to a stool-based test for colon cancer screening. She understood the plan, and her questions were answered. Orders: Orders Complete Blood Count Auto Diff Today Z00.00 - Encounter for general adult medical examination without abnormal findings Comprehensive Met. Panel Today Z00.00 - Encounter for general adult medical examination without abnormal findings Hemoglobin A1c Today Z00.00 - Encounter for general adult medical examination without abnormal findings Lipid Panel Today Z00.00 - Encounter for general adult medical examination without abnormal findings TSH reflex Free T4 Today Z00.00 - Encounter for general adult medical examination without abnormal findings Vitamin D 25-OH Total Today Z00.00 - Encounter for general adult medical examination without abnormal findings Alkaline Phosphatase Bone Today M81.0 - Age-related osteoporosis without current pathological fracture Parathyroid Hormone Intact Today M81.0 - Age-related osteoporosis without current pathological fracture Referrals Cologuard Test Z12.11 - Encounter for screening for malignant neoplasm of colon, Z12.12 - Encounter for screening for malignant neoplasm of rectum Endocrinology Referral M81.0 - Age-related osteoporosis without current pathological fracture Patient Instructions: - Continue taking your antibiotic (nitrofurantoin) until it is finished to clear up the urinary tract infection. - For your bladder control, try to limit drinking fluids after 7:00 PM. - Make it a habit to go to the bathroom every two hours during the day, even if you don't feel the urge to go. - Before bed, try to empty your bladder completely. - Try taking an [id number] laxative like MiraLax for a few days to make sure you are not constipated, as this can affect your bladder. - Keep a log of how often you are urinating and what you are drinking. - Please go across the [place] to the lab for blood work today; the orders have already been sent. - We will make a referral for you to see an switch adjuster (a specialist in bone health) to manage your severe osteoporosis. - Please schedule a follow-up appointment in two weeks to check on your progress.
[2024-12-19 10:23] VITALS: BP 120/70; PULSE 95; RESP 16; TEMP 36.4; O2SAT 95; BMI 31.7
== END 2024-12-19 10:53 | disposition home or self-care (01) ==
PROVIDERS: PCP Student in an Organized Health Care Education/Training Program; Visit Provider Student in an Organized Health Care Education/Training Program
DX: Z00.00 Encounter for general adult medical examination without abnormal findings (principal); R32 Unspecified urinary incontinence; Q78.2 Osteopetrosis; G50.0 Trigeminal neuralgia; N30.00 Acute cystitis without hematuria

== ENCOUNTER 2024-12-19 10:55 | Outpatient (REF) | payer MEDICARE, SELFPAY ==
[2024-12-19 11:24] LABS: MANUAL DIFF FLAG NO
[2024-12-19 11:44] LABS: Hematocrit 42.6 % (37.0-47.0); Hemoglobin 13.6 g/dl (12.0-16.0); Imm Gran Abs Auto 0.02 X10*3/uL (0.00-0.03); Imm Gran Pct Auto 0.3 % (0.0-0.4); Lymphocytes Absolute Auto 1.6 X10*3/uL (1.2-4.9); Mean Corpuscular HGB Conc 31.9 g/dl (31.0-35.0); Mean Corpuscular Hemoglobin 29.2 pg (27.0-33.0); Mean Corpuscular Volume 91.6 fL (80.0-98.0); NRBC Abs Auto 0.000 X10*3/uL (0.0-0.012); NRBC Pct Auto 0.0 /100WBC (0.0-0.2); Platelet Count 403 X10*3/uL (160-400); Red Blood Count 4.65 X10*6/uL (4.20-5.50); White Blood Count 6.3 X10*3/uL (4.8-10.8)
[2024-12-19 12:24] LABS: Alanine Aminotransferase 17 U/L (0-31); Albumin Level 4.2 g/dL (3.5-5.0); Alkaline Phosphatase 74 U/L (39-117); Anion Gap 10 (12-20); Aspartate Amino Transferase 25 U/L (5-31); Blood Urea Nitrogen 15 mg/dL (9-16); Calcium 9.5 mg/dL (8.4-10.2); Carbon Dioxide 30 mmol/L (22-29); Chloride 108 mmol/L (96-108); Cholesterol 181 mg/dL (<200); Estimated Glomerular Filt Rate > 60; HDL Cholesterol 49 mg/dL (>40); Potassium 4.0 mmol/L (3.3-5.1); Sodium 144 mmol/L (135-145); Total Protein 6.9 g/dL (6.5-8.0); Triglycerides 63 mg/dL (<150)
[2024-12-19 12:39] LABS: Parathyroid Hormone Intact 58.4 pg/mL (8.7-77.1)
== END 2024-12-19 10:56 | disposition home or self-care (01) ==
LOC: HO.10HDL 10:55
PROVIDERS: Visit Provider Student in an Organized Health Care Education/Training Program
DX: Z00.00 Encounter for general adult medical examination without abnormal findings (principal); M81.0 Age-related osteoporosis without current pathological fracture; Z13.29 Encounter for screening for other suspected endocrine disorder; Z13.1 Encounter for screening for diabetes mellitus
CPT/HCPCS: 36415; 80053; 80061; 82306; 83036; 83970; 84075; 84443; 85025; 96127; 99387

== ENCOUNTER 2025-01-02 10:02 | Outpatient (AMB) | payer MEDICARE, SELFPAY ==
--- NOTE | 2025-01-02 09:43 | MHC.PC.OV ---
Vital Signs 01/02/25 10:10 Height 5 ft 5 in Weight 189 lb BMI 31.4 BP 124/56 L Blood Pressure Location Lt brachial Position Sitting Respiration 18 Pulse 96 Pulse Source Pulse Oximeter Temp 98 F Temp Source Temporal Artery Scan Pulse Oximetry (%) 97 Oxygen Delivery Method Room Air Intake Visit Reasons: 2 wk f/u Carbon Cleaner Required: No Accompanied by: Self / Same As Patient Allergies No Known Allergies (No Known Allergies*) Allergy (Verified 01/02/25 09:43) Medication List - Last Reconciled 01/02/25 by Orlando Nunez MD ascorbate calcium (vitamin C) 500 mg PO DAILY [brewers yeast PO] carbamazepine ER (Carbatrol) 200 mg PO ONCE PRN cholecalciferol (vitamin D3) (Vitamin D3) 25 mcg PO DAILY methocarbamol 500 mg PO TID PRN multivitamin 1 tab PO DAILY vitamin E (Purevita Vitamin E) mg PO Tobacco use date assessed: 12/19/24 Dental Screening Dental Screen Date: 12/19/24 HPI HPI Comments History of Present Illness Details The patient is a 69-year-old female presenting for follow-up and management of her chronic conditions, including osteoporosis and trigeminal neuralgia, and for medication refills. She was sick all week with a cold and was bedridden for two days. The patient reports having chronic bathroom issues for the last 8 to 10 years, which have recently resolved. She attributes this improvement to no longer drinking her kitchen tap water after noticing an orange-pinkish film in her shower, and instead drinking filtered water from her refrigerator. Since making this change, she reports her sleep has also improved significantly. The patient has a known history of osteoporosis, with a T-score of -5 in the femur. She experiences intermittent pain in the femoral neck area, particularly when turning a certain way, which can momentarily affect her ability to walk. For trigeminal neuralgia, the patient takes carbamazepine and methocarbamol as needed for jaw tightness. She notes symptoms have been bothering her lately and that cold weather striking her face can trigger them. She has also had a swollen area on her jaw for about a year, for which an x-ray taken by an publications sales representative showed no abnormalities. A prior urinary tract infection has resolved, and she no longer has symptoms of dysuria. Recent lab work showed an LDL cholesterol of 120, which the patient attributes to eating eggs, and an A1c of 5.2. She has been taking a teaspoon of olive oil nightly to address word-finding difficulties and feels it has been helpful. She has an upcoming endocrinology appointment on February 19. Medical History: - Trigeminal neuralgia - Osteoporosis, with a T-score of -5 in the femur - Hypercholesterolemia - Localized swelling of the jaw, present for one year - History of urinary tract infection, resolved - History of chronic diarrhea for 8-10 years, recently resolved - Subjective cognitive complaints, including word-finding difficulty Medications: - Carbamazepine for trigeminal neuralgia, recently increased to twice daily - Methocarbamol as needed for jaw tightness associated with trigeminal neuralgia - Multivitamin with calcium - Vitamin D - Fults oil, one teaspoon at night, taken for word-finding difficulty Diagnostic Results: - Labs: Hemoglobin A1c 5.2%, LDL cholesterol 120 mg/dL. - Imaging: Bone density scan showed a T-score of -5 in the femur. - Imaging: X-ray of the jaw was negative for any findings. Social History: - Diet: Reports eating eggs and taking a teaspoon of olive oil at night. - Water Source: Recently switched from drinking tap water to filtered refrigerator water due to suspected contamination. - Activity Level: Reports being active. [facility] Medical History (Updated 01/02/25 @ 10:34 by Orlando Nunez MD) Jaw swelling Hypertriglyceridemia Annual physical exam Urinary tract infection Trigeminal neuralgia Severe osteopetrosis Urinary incontinence Osteoporosis Social History Housing: House Patient Tobacco Use Status: Never used Tobacco e-Cigarette/Vaping Use: Never Used service: No Current occupational status: retired Cognitive needs: No Hearing needs: No Vision needs: No Questionnaire PHQ-9 Over the last 2 weeks, how often have you been bothered by any of the following problems? 1. Little interest or pleasure in doing things: not at all 2. Feeling down, depressed, or hopeless: not at all 3. Trouble falling or staying asleep, or sleeping too much: not at all 4. Feeling tired or having little energy: not at all 5. Poor appetite or overeating: not at all 6. Feeling bad about yourself - or that you are a failure or have let yourself or your family down: not at all 7. Trouble concentrating on things, such as reading the newspaper or watching television: not at all 8. Moving or speaking so slowly that other people could have noticed. Or the opposite - being so fidgety or restless that you have been moving around a lot more than usual: not at all 9. Thoughts that you would be better off or of hurting yourself in some way: not at all Total score: 0 Depression Screening Interpretation: Negative Depression Screening Done: Yes Source: Developed by Drs. Edi Ulrich, Martha De Paz, Tarun Cox and colleagues, with an educational tiff from [employer]. Thrive Questionnaire Date Thrive assessed: 01/02/25 I am a: Patient What is your living situation today?: I have a steady place to live Within the past 12 months, did the food you bought not last and you didn't have the money to get more?: Never true Within the past 12 months, did you worry whether your food would run out before you got money to buy more?: Never true Do you have trouble paying for medicines?: No Do you have trouble getting transportation to medical appointments?: No Do you have trouble paying your heating and electricity bill?: No Do you have trouble taking care of your child, family member or friend?: No Do you have trouble with day-to-day activities such as bathing, preparing meals, shopping, managing finances, etc.?: No Are you currently unemployed and looking for a job?: No Are you interested in more education?: No THRIVE Score: 0 AUDIT C Alcohol Use Questionnaire (AUDIT-C) 1. How often do you have a drink containing alcohol?: Never Total Score: 0 Score Reviewed/Action Taken: Yes JOSEPH-7 AMB Questionnaire JOSEPH-7 Date JOSEPH - 7 assessed: 01/02/25 Feeling nervous, anxious, or on edge: 0 = Not at all Not being able to stop or control worryin = Not at all Worrying too much about different things: 0 = Not at all Trouble relaxin = Not at all Being so restless that it is hard to sit still: 0 = Not at all Becoming easily annoyed or irritable: 0 = Not at all Feeling afraid as if something awful might happen: 0 = Not at all Total JOSEPH-7 score (0-4 normal; 5-9 mild; 10-14 moderate; 15-21 severe): 0 Source: Developed by Drs. Edi Ulrich, Martha De Paz, Tarun Cox and colleagues, with an educational tiff from [employer]. JOSEPH-7 Assessment Billing JOSEPH-7 Assessment Tool: JOSEPH-7 Assessment 72574 Review of Systems Narrative - Constitutional: Reports recent cold symptoms and malaise requiring bedrest for 2 days. - GI: Denies current gastrointestinal issues; reports resolution of chronic bathroom problems after changing water source. - : Denies dysuria. - Musculoskeletal: Reports intermittent pain in the femoral neck area that can momentarily affect her ability to walk. - Reports jaw tightness. - Neurological: Reports facial nerve pain consistent with trigeminal neuralgia, triggered by cold weather. - Reports word-finding difficulties. - HEENT/Skin: Reports a swollen area on her jaw for the past year. - Psychiatric: Reports sleeping well and feeling better since her GI issues resolved. All systems reviewed & are unremarkable except as reviewed in HPI and above Physical exam (Primary Care) Vital Signs: Last Vital Signs Temp 98 F 01/02/25 10:10 Pulse 96 01/02/25 10:10 Resp 18 01/02/25 10:10 BP 124/56 L 01/02/25 10:10 Pulse Ox 97 01/02/25 10:10 Oxygen Delivery Method Room Air 01/02/25 10:10 BMI result Body Mass Index 31.4 Tobacco/Smoking Status: Tobacco use Status Tobacco use date assessed 12/19/24 01/02/25 09:44 Patient Tobacco Use Status Never used Tobacco 01/02/25 09:44 e-Cigarette/Vaping Use Never Used 01/02/25 09:44 Depression Screening Interpretation: Negative Thrive Assessment: Date of Thrive Assessment Date Thrive assessed 12/19/24 01/02/25 09:44 Narrative General: Alert and oriented, Well nourished, No acute distress. Eye: Pupils are equal, round and reactive to light, Intact accommodation, Extraocular movements are intact, Normal conjunctiva, Vision unchanged. HENT: Normocephalic, Atraumatic, Tympanic membranes are clear, Normal hearing, Oral mucosa is moist, No pharyngeal erythema, Ear canals patent. Respiratory: Lungs CTA bilaterally, No wheeze, Respirations are non-labored. Cardiovascular: Regular rate, Regular rhythm, S1 auscultated, S2 auscultated, No murmur, Good pulses equal in all extremities, Normal peripheral perfusion, No edema. Gastrointestinal: Soft, Non-tender, Non-distended, Normal bowel sounds, No organomegaly. Musculoskeletal: Normal range of motion, Normal strength, No tenderness, No swelling, No deformity, Normal gait. Integumentary: Warm, Dry, [place], Intact. Neurologic: Alert, Oriented, Normal sensory, Normal motor function, No focal defects, Cranial Nerves II-XII are grossly intact, Normal deep tendon reflexes. Psychiatric: Cooperative, Appropriate mood & affect, Normal judgment. Coding Level of Care Code Est Pt Level 4 (49236) Complex EM visit Add On G2211 Diagnoses Acute cystitis without hematuria N30.00 Urinary tract infection type: acute cystitis Hematuria presence: without hematuria Severe osteopetrosis Q78.2 Trigeminal neuralgia G50.0 Other urinary incontinence N39.498 Urinary Incontinence type: other incontinence Hypertriglyceridemia E78.1 Jaw swelling R22.0 Additional Codes JOSEPH-7 Assessment Billing - JOSEPH-7 Assessment Tool: JOSEPH-7 Assessment [id number] ([id number]) Assessment & Plan Assessment & Plan (1) Urinary tract infection: Comment: - The patient's previous UTI has resolved, and she is asymptomatic. - No further intervention is required. Code(s): N39.0 - Urinary tract infection, site not specified Category: Medical Qualifiers: Urinary tract infection type: acute cystitis Hematuria presence: without hematuria Qualified Code(s): N30.00 - Acute cystitis without hematuria (2) Severe osteopetrosis: Comment: - The patient has a known T-score of -5 in the femur and experiences associated intermittent pain. - She is advised to continue her vitamin D supplementation and to remain physically active. - Going to establish with endocrinology in january Code(s): Q78.2 - Osteopetrosis Category: Medical (3) Trigeminal neuralgia: Comment: - The patient's symptoms have been more active recently, possibly exacerbated by cold weather. - The dose of carbamazepine will be increased to twice daily. - A refill for methocarbamol will also be provided for as-needed use for jaw tightness. Code(s): G50.0 - Trigeminal neuralgia Category: Medical (4) Urinary incontinence: Comment: - Resolved, no longer having any more symptoms Code(s): R32 - Unspecified urinary incontinence Category: Medical Qualifiers: Urinary Incontinence type: other incontinence Qualified Code(s): N39.498 - Other specified urinary incontinence (5) Hypertriglyceridemia: Comment: - Recent labs show an LDL of 120 mg/dL. - Given her lack of other cardiovascular risk factors such as hypertension, pharmacotherapy will be held at this time. - Dietary modifications, including avoiding excess olive oil, were discussed. Code(s): E78.1 - Pure hyperglyceridemia Category: Medical (6) Jaw swelling: Comment: - The patient reports a swollen area for the past year with a negative prior x-ray at publications sales representative evaluation - A neck ultrasound was offered, but the patient declined due to concerns about pressure on the nerve. - No swelling appreciated on exam, but unable to complete proper exam given patients concerns of pain - Will continue to monitor. Code(s): R22.0 - Localized swelling, mass and lump, head Category: Medical Plan: Health Maintenance: - Supplements: Patient advised to continue vitamin D and calcium via her multivitamin for bone health. - Lifestyle: Encouraged to remain physically active. - Diet: Discussed elevated cholesterol and advised against excessive olive oil intake. - Preventative Care: Patient has a scheduled follow-up with endocrinology on February 19, which was encouraged. Patient was informed and verbally consented to the use of an ambient scribe for clinic note documentation during this visit. Plan I reviewed the patient's recent lab work. I noted her LDL cholesterol is elevated at 120, but we agreed to monitor this with diet for now, given her lack of other risk factors like hypertension. We discussed management of her trigeminal neuralgia, and I increased her carbamazepine dose to twice daily and refilled her methocarbamol for as-needed use, particularly with cold weather triggers. I encouraged her to continue calcium, vitamin D, and activity for her osteoporosis. Regarding the swelling on her jaw, I performed an examination and offered an ultrasound, which she declined due to concern about nerve pain. I confirmed her urinary tract infection has resolved. Finally, I reinforced the importance of her upcoming endocrinology appointment. Medications: New methocarbamol 500 mg PO TID 90 tabs 3RF Changed From carbamazepine ER (Carbatrol) 200 mg PO ONCE PRN To carbamazepine ER (Carbatrol) 200 mg PO BID 180 caps 3RF 90 days Patient Instructions: - Take your Carbamazepine medication twice a day as prescribed. - You can use the muscle relaxer, Methocarbamol, when you feel significant jaw tightness, but be careful when you take it. - Continue taking your multivitamin with calcium and vitamin D. - Continue to stay physically active. - Your cholesterol is a little high, so be mindful of your diet, including how much olive oil you consume. - It is good that your stomach problems have disappeared after switching to filtered water; please continue with this. - Keep your scheduled appointment with the offset lithographic press operator on February 19.
[2025-01-02 10:10] VITALS: BP 124/56; PULSE 96; RESP 18; TEMP 36.6; O2SAT 97; BMI 31.4
== END 2025-01-02 10:32 | disposition home or self-care (01) ==
LOC: HO.HMCHD 10:03
PROVIDERS: PCP Student in an Organized Health Care Education/Training Program; Visit Provider Student in an Organized Health Care Education/Training Program
DX: N30.00 Acute cystitis without hematuria (principal); Q78.2 Osteopetrosis; G50.0 Trigeminal neuralgia; N39.498 Other specified urinary incontinence; E78.1 Pure hyperglyceridemia; R22.0 Localized swelling, mass and lump, head

== ENCOUNTER → 2025-01-02 10:02 | Outpatient (BNVA) | payer MEDICARE, SELFPAY | PROVIDERS: PCP Student in an Organized Health Care Education/Training Program; Visit Provider Student in an Organized Health Care Education/Training Program | DX: G50.0 Trigeminal neuralgia (principal); Q78.2 Osteopetrosis; E78.1 Pure hyperglyceridemia; R22.0 Localized swelling, mass and lump, head; Z87.440 Personal history of urinary (tract) infections; Z13.31 Encounter for screening for depression; Z13.39 Encounter for screening examination for other mental health and behavioral disorders | CPT/HCPCS: 96127; 99212 ==

== ENCOUNTER 2025-02-19 09:51 | Outpatient (REF) | payer MEDICARE, SELFPAY | END 2025-02-19 09:52 | disposition home or self-care (01) | LOC: HO.10HDL 09:51 | PROVIDERS: PCP Student in an Organized Health Care Education/Training Program; Visit Provider Internal Medicine Endocrinology, Diabetes & Metabolism | DX: M81.0 Age-related osteoporosis without current pathological fracture (principal); Z79.899 Other long term (current) drug therapy | CPT/HCPCS: 36415; 84100; 99202 ==

== ENCOUNTER 2025-02-19 09:51 | Outpatient (AMB) | payer MEDICARE, SELFPAY ==
[2025-02-19 09:59] VITALS: BP 110/68; PULSE 76; O2SAT 95
--- NOTE | 2025-02-19 09:59 | MHC.OFFVIS ---
Vital Signs 02/19/25 09:59 Height 5 ft 5.83 in Weight 184 lb 11.958 oz BMI 30.0 BP 110/68 Blood Pressure Location Rt brachial Position Sitting Pulse 76 Pulse Source Pulse Oximeter Pulse Oximetry (%) 95 Oxygen Delivery Method Room Air Intake Visit Reasons: osteoporosis Intake Note: New patient internally referred by PCP for Osteoporosis. Home Specialist Required: No Accompanied by: Self / Same As Patient Allergies calcium Adverse Reaction (Unknown, Verified 02/19/25 10:02) Trigeminal nerve Medication List - Last Reconciled 02/19/25 by Edi Herbert MD ascorbate calcium (vitamin C) 500 mg PO DAILY [brewers yeast PO] carbamazepine (Epitol) 200 mg PO BID 30 days cholecalciferol (vitamin D3) (Vitamin D3) 25 mcg PO DAILY methocarbamol 500 mg PO TID multivitamin 1 tab PO DAILY vitamin E (Purevita Vitamin E) mg PO HPI Comments Details: History of Present Illness The patient is a 69-year-old female presenting for evaluation and management of osteoporosis. She was diagnosed with osteoporosis approximately four years ago, with the last bone density scan performed about two years ago. She has never previously seen a specialist or taken any prescription medications for osteoporosis. The patient has no history of hip, spine, or forearm fractures, but reports a height loss of 2 inches. The patient reports a significant intolerance to calcium supplements, which she states activates her trigeminal nerve, causing sharp facial pain. She describes a past episode of facial swelling and oral sensations of static electricity and fire associated with a diet pill containing calcium. She was previously on gabapentin for this nerve pain but has since discontinued it. An attempt to take 500 mg of calcium as prescribed by another physician also precipitated her symptoms. Her dietary calcium intake is low. Past medical history is negative for kidney stones. Gynecologic history includes menarche at age 16 and menopause in her 50s, with a history of heavy but regular periods. There is no family history of osteoporosis or hip fractures. She denies a history of smoking, heavy alcohol use, or regular steroid use. She is up to date on her dental cleanings and has no upcoming dental procedures. The patient reports she does not engage in weight-bearing exercise and has poor balance. Medication History - Calcium supplements: Discontinued due to causing trigeminal neuralgia symptoms. - Gabapentin: Previously taken for nerve pain symptoms but is no longer taking it. Medications - Carbamazepine: Taken for trigeminal neuralgia. - Vitamin D supplement: Dosage not specified. Exercise The patient reports that she does not currently engage in any weight-bearing exercise. She also notes that her balance is not great. Diet History The patient reports an inability to tolerate any form of calcium supplement due to it triggering trigeminal neuralgia. Her dietary calcium intake is noted to be low, as she does not consume most calcium-rich foods and only eats broccoli occasionally. An episode of eating cheese and ice cream reportedly triggered her symptoms. She is taking a vitamin D supplement. Results - Bone Mineral Density (DEXA): Last performed approximately 2 years ago. - Results: T-score of -5.0 in the left femur and -4.0 in the total femur, which is considered severe. - Comparison: Reported 11% decrease from previous scan and 52% decrease from baseline. - Note: The spine measurement on the DEXA was noted as likely inaccurate and falsely elevated due to the presence of osteoarthritis. - Laboratory Studies: Previous thyroid and vitamin D levels were noted to be good. [facility] Medical History (Updated 01/02/25 @ 10:34 by Orlando Nunez MD) Jaw swelling Hypertriglyceridemia Annual physical exam Urinary tract infection Trigeminal neuralgia Severe osteopetrosis Urinary incontinence Osteoporosis Surgical History History of surgery Social History Housing: House Patient Tobacco Use Status: Never used Tobacco e-Cigarette/Vaping Use: Never Used service: No Current occupational status: retired Cognitive needs: No Hearing needs: No Vision needs: No Review of Systems Narrative Review of Systems - Neurological: Reports sharp facial pain consistent with trigeminal neuralgia that is triggered by calcium intake. Reports poor balance. Denies pain upon spinal palpation. - Musculoskeletal: Reports a 2-inch loss in height over time. Reports having fallen a few times without injury. Denies any history of hip, spine, or forearm fractures. Denies pain associated with osteoporosis. - Gynecological: Reports a history of heavy but regular menses prior to menopause, which occurred in her 50s. - Genitourinary: Denies a history of kidney stones. - Social History: Denies history of smoking or heavy alcohol use. Physical Exam Exam Exam: Physical Exam - Neck: Thyroid palpated on swallowing without apparent abnormality. - Back: Spine non-tender to palpation. Absence of Cushingoid features. Absence of acromegalic features. Neck exam reveals nl size thyroid about 15 gms. No thyroid nodules palpable. Heart S1 S2, Reg R/R. No M/R G. Skin exam reveals absence of vitiligo or acanthosis nigricans. Visual exam of foot performed. No ulcerations or open lesions. No inter digit maceration or fissuring. No onychomycosis, no callouses. Sensation intact to monofilament exam. Vibratory sensation is normal with 128 Hz tuning fork. Vital Signs: Last Vital Signs Pulse 76 02/19/25 09:59 BP 110/68 02/19/25 09:59 Pulse Ox 95 02/19/25 09:59 Oxygen Delivery Method Room Air 02/19/25 09:59 BMI result Body Mass Index 30.0 There are no Cushingoid features. Absence of blue sclera. Absence of kyphosis. Thyroid gland is of nl size and weighs 15 gms. There are no thyroid nodules palpated. Lungs CTA. Heart S1 S2 Reg R/R Abdominal exam benign. Muscle strength 5/5 . Examination of spine reveals absence of tenderness on palpation Assessment & Plan Assessment & Plan (1) Osteoporosis: Code(s): M81.0 - Age-related osteoporosis without current pathological fracture Category: Medical Plan: This is a 69-year-old white female with a history of severe osteoporosis with partial secondary workup Plan is to complete the secondary workup by checking a phosphorus level, urine immunofixation, 24 hour urine for calcium and creatinine. We will continue vitamin-D supplementation ensure 1200 mg of calcium. Assuming secondary workup was negative would strongly consider the use of anabolic agent 1st should she has Evenity considering patient's very low bone density as it high risk for fracture Plan Assessment and Plan 1. Severe Osteoporosis The patient has severe osteoporosis with a T-score of -5.0 in the hip, placing her at a very high risk for fracture. This is significantly complicated by her inability to tolerate calcium supplements, which appear to trigger her trigeminal neuralgia, and a low dietary calcium intake. The management plan will prioritize fracture prevention through a multi-faceted approach, acknowledging that inadequate calcium may limit the efficacy of pharmacotherapy. Plan as follows: Diagnostic Workup: A secondary workup for osteoporosis will be initiated to rule out other contributing factors. This includes ordering blood tests and a 24-hour urine collection to rule out conditions like multiple myeloma and to assess calcium excretion and absorption. Diet and Lifestyle: Advised the patient to make a significant effort to increase dietary calcium intake and to continue her current vitamin D supplement. Recommended initiating weight-bearing exercise and joining a bone to balance class to improve bone strength and reduce fall risk. Fall prevention strategies, such as ensuring well-lit stairs and clear floors, were also discussed. Pharmacotherapy Discussion: An extensive discussion was held regarding treatment options, with a recommendation to start with a bone-building (anabolic) agent first due to the severity of her bone loss, followed by a stabilizing (anti-resorptive) agent. The anabolic options discussed were Evenity (romosozumab), Tymlos (abaloparatide), and Forteo (teriparatide). Anti-resorptive options to be used for maintenance include Prolia (denosumab) or a bisphosphonate like Fosamax (alendronate). No therapy will be initiated until the workup is complete. Follow-up: The patient will return in 3-4 months to review test results and make a final decision on treatment. A repeat bone density scan will be deferred until after one year of therapy to assess response. The patient had an opportunity to ask questions regarding treatment plan. The patient expressed understanding and agreement with the above treatment plan. Patient was informed and verbally consented to the use of an ambient scribe for clinic note documentation during this visit. Discussion Notes I had an extensive discussion with the patient regarding her diagnosis of severe osteoporosis, highlighted by a very low T-score of -5.0 in her hip. I explained the pathophysiology of osteoporosis, the meaning of T-scores, and the very high risk of fracture this represents, which can lead to a significant loss of independence. We discussed that the first step is a secondary workup with blood and a 24-hour urine test to rule out other causes and to assess her calcium metabolism, which is particularly important given her intolerance to calcium supplements. I emphasized the importance of adequate calcium and vitamin D as the foundation for any osteoporosis treatment. We reviewed non-pharmacologic measures including fall prevention, increasing dietary calcium, and starting weight-bearing exercise. I explained the therapeutic strategy of using a bone-building agent first (e.g., Evenity, Tymlos, Forteo) for 1-2 years, followed by a stabilizing agent (e.g., Prolia, alendronate) to maintain the gains. I detailed the specifics of each medication, including administration, duration, and read differences, noting that insurance and cost would be a factor in the final decision. I made it clear that no treatment would be started today and that we would convene in 3-4 months to review the workup and decide on a path forward jointly. Patient Instructions - Complete the ordered blood tests and the 24-hour urine collection. - Make an effort to increase the amount of calcium you get from the foods you eat. - Continue taking your current vitamin D supplement. - Begin weight-bearing exercises to help strengthen your bones. A bone to balance class was recommended. - Take steps to prevent falls at home, such as keeping floors clear of clutter and ensuring stairways are well-lit. - Research the osteoporosis medications discussed (Evenity, Tymlos, and Forteo) so you can be prepared for our next discussion. - Schedule a follow-up appointment in 3-4 months to review your test results and discuss a treatment plan. - If you have a fall and fracture a bone before your next appointment, please contact the office sooner. Orders: Orders Phosphorus Today M81.0 - Age-related osteoporosis without current pathological fracture Calcium, 24 Hr Ur Today M81.0 - Age-related osteoporosis without current pathological fracture Creatinine, 24 Hr Group Today M81.0 - Age-related osteoporosis without current pathological fracture Immunofixation, Random Urine Today M81.0 - Age-related osteoporosis without current pathological fracture Coding Level of Care Code New Pt Level 4 (47615) Diagnoses Osteoporosis M81.0
== END 2025-02-19 11:07 | disposition home or self-care (01) ==
LOC: HO.ENCR 09:52
PROVIDERS: PCP Student in an Organized Health Care Education/Training Program; Visit Provider Internal Medicine Endocrinology, Diabetes & Metabolism
DX: M81.0 Age-related osteoporosis without current pathological fracture (principal)
CPT/HCPCS: 99204